=== PATIENT | female | born 1925 | race Caucasian/White ===

== ENCOUNTER 2017-01-16 22:35 | Emergency (ER) | payer BC, MEDICARE ==
[2017-01-16] MEDS ORDERED: SODIUM CHLORIDE IRRIG 1,000 ML BOTTLE IRRIGATION ONE (22:56)
[2017-01-16] MEDS ORDERED: LIDOCAINE HCL 2% 20 ML VIAL ONE (23:07)
[2017-01-16] MEDS ORDERED: TETANUS IMMUNE GLOBULIN 250 UNIT IM ONE (23:07)
[2017-01-16] MEDS ORDERED: TETANUS/DIPTHERIA 0.5 ML DISP.SYRIN IM ONE (23:10)
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
== END 2017-01-16 23:29 | disposition home or self-care (01) ==
LOC: ER 22:35
DX: S81.811A Laceration without foreign body, right lower leg, initial encounter (principal); W22.09XA Striking against other stationary object, initial encounter; Y92.010 Kitchen of single-family (private) house as the place of occurrence of the external cause; Y93.01 Activity, walking, marching and hiking; Z23 Encounter for immunization; I10 Essential (primary) hypertension; I25.10 Atherosclerotic heart disease of native coronary artery without angina pectoris; Z79.82 Long term (current) use of aspirin
CPT/HCPCS: 12002; 12032; 90471; 90715; 99282; 99283; A4217; J1670

== ENCOUNTER 2017-01-23 16:36 | Emergency (ER) | payer MEDICARE ==
--- NOTE | 2017-01-23 17:10 | ER NURSING DOCUMENTATION ---
Nurse's Notes [facility] Name:Jazmyne Rankin Age:89 yrs Sex:Female :1925 Arrival Date:01/23/2017 Time:16:36 Bed1 Private MD:Jose Allen Diagnosis:Suture Removal Presentation: 01/23 16:40 Acuity: ISIAH 4 tg 16:40 Presenting complaint: Patient states: Suture removal from left juarez. Transition of tg care: patient was not received from another setting of care. 16:40 Method Of Arrival: Private Vehicle tg Triage Assessment: 17:05 General: Appears in no apparent distress, Behavior is cooperative. Pain: Denies pain. tg Injury Description: Well-healed laceration on left juarez. wound is not completely closed at surface, but did not separate with moderate tension applied. Steri-strips applied after suture removal for reinforcement. Pt given wound care instructions. - Tetanus: < 10 years. - Ebola Screening: : Patient negative for fever greater than or equal to 101.5 degrees Fahrenheit, and additional compatible Ebola Virus Disease symptoms. Patient denies exposure to infectious person. Patient denies travel to an Ebola-affected area in the 21 days before illness onset. No symptoms or risks identified at this time. . Screenin:08 Infectious Disease Risk Unable to Obtain. Abuse screen: Denies threats or abuse. Denies tg injuries from another. Nutritional screening: No deficits noted. Vital Signs: 17:07 Pulse 58; Resp 16; Temp 98.2(O); Pulse Ox 93% on R/A; Pain 0/10; tg ED Course: 16:39 Patient arrived in ED. ama 16:39 Jose Allen MD is Private Physician. ama 16:40 Humberto Rojo RN is Primary Nurse. tg 16:40 Triage completed. tg 17:08 Suture site is well healed Patient tolerated well. tg 17:08 Valuables Remains with patient. tg 17:09 Jose Allen MD is Referral Physician. tg Administered Medications: No medications were administered Outcome: 17:08 Discharged to home ambulatory, with family. tg 17:08 Condition: stable 17:08 Discharge Assessment: Patient awake, alert and oriented x 3. No cognitive and/or functional deficits noted. Patient verbalized understanding of disposition instructions. 17:08 Instructed on follow up and referral plans. wound care. 17:09 Discharge ordered by . tg 17:09 Patient left the ED. tg Signatures: Humberto Rojo RN RN tg Jonnie Kumari, Reg Reg ama
== END 2017-01-23 17:10 | disposition home or self-care (01) ==
LOC: ER 16:36
DX: Z48.02 Encounter for removal of sutures (principal); S81.811D Laceration without foreign body, right lower leg, subsequent encounter
CPT/HCPCS: 99281